=== PATIENT | male | born 2000 | race African-American/Black ===

== ENCOUNTER 2020-12-14 13:48 | Emergency (ER) | payer OTHER, SELFPAY ==
--- NOTE | ~2020-12-14 | XR_ITS ---
EXAMINATION: XR HUMERUS, LEFT CLINICAL INFORMATION: Injury COMPARISON: None TECHNIQUE: AP and lateral views of the left humerus. FINDINGS: The bones and soft tissues are normal. No fracture. Imaged portions of the shoulder and elbow are unremarkable. There is soft tissue subcutaneous emphysema from soft tissue laceration. XR/XR humerus LT IMPRESSION: No radiodense foreign body. No fracture. Subcutaneous and deep soft tissue emphysema probably due to patient's soft tissue laceration injury.
[2020-12-14 16:54] VITALS: BP 148/90; PULSE 64; RESP 16; TEMP 37.2; O2SAT 98; BMI 21.3
[2020-12-14] MEDS: oxyCODONE HCl Immed Release 5 MG TABLET PO (17:35)
[2020-12-14] MEDS: Diphth,Pertus(ACell),Tet Adult 0.5 ML SYRINGE IM (17:36)
[2020-12-14] MEDS: Lidocaine HCl 1 % MPF 5 ML VIAL SUBCUT (17:37)
--- NOTE | 2020-12-14 18:05 | ED.WOUNDLAC ---
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 Denies head injury or loss of consciousness. Not up-to-date on tetanus. Onset (ago): minute(s) (Prior to arrival) Extremity Location: left: arm Place: work (Outdoors) Patient tetanus UTD: No Context: accidental Associated symptoms: pain and unable to move injured part Treatments prior to arrival: bandage Related Data Previous Rx's Medication Instructions Recorded acetaminophen 500 mg tablet 1,000 mg PO QID PRN #14 tab 12/14/20 (Tylenol Extra Strength) cephalexin 500 mg capsule 500 mg PO QID 10 Days #40 cap 12/14/20 ibuprofen 800 mg tablet 800 mg PO Q8H PRN #14 tab 12/14/20 oxycodone 5 mg tablet 5 mg PO BID PRN #10 tab 12/14/20 Allergies Allergy/AdvReac Type Severity Reaction Status Date / Time No Known Allergies Allergy Verified 12/14/20 16:53 Review of Systems Review of Systems: Constitutional : No Fever, No Chills, Cardiovascular : No Chest Pain, No SOB Respiratory : No Dyspnea Gastrointestinal : No abdominal pain Musculoskeletal : No Joint Swelling Skin : positive skin laceration, No Foreign bodies, No rash, No surrounding erythema Neuro : No Weakness, No Numbness/tingling Psych : No SI/HI/thoughts of self injury Yes all other systems are reviewed and are negative PMFSH Past Medical History Attestation statement: The following information was validated with the patient. Medical History No known health problems Social History Social History Advance Directives: No Advance Directives Information Provided: Yes Physical Exam Vital Signs: Vital Signs: Last Vital Signs Temp 99.0 F 12/14/20 16:54 Pulse 64 12/14/20 16:54 Resp 16 12/14/20 16:54 BP 148/90 H 12/14/20 16:54 Pulse Ox 98 12/14/20 16:54 Body Mass Index 21.3 vital signs have been reviewed as normal and appeared to be correct. Blood pressure hypertensive 149/90. Heart rate normal. Respiration rate normal. Temperature normal. Oxygen saturation normal. Appearance: Alert. Oriented X3. No acute distress. Head: Normal external exam. Normocephalic. Atraumatic. Eyes: PERRLA. EOMI. Conjunctiva and sclera normal. Eyelids normal. ENT:Pharynx normal. Uvula midline. Moist mucous membranes. Neck: Normal inspection. Neck supple. FROM. No adenopathy. No meningeal signs. CVS: Normal heart rate and rhythm. Heart sound normal. Pulses normal throughout. No murmurs/rales/gallops. Respiratory: No respiratory distress. Painless inspiration. Breath sounds normal. No wheezes/rales/rhonchi noted. Chest nontender. No accessory muscle usage noted or decreased air movement noted. Back: Full range of motion noted. No rashes/lesion/induration/fluctuance or signs of infection noted. Skin: Skin warm and dry. Normal skin color. Normal skin turgor. No rashes/lesions noted. Extremities: To left upper arm at the distal humerus aspect patient has moderate tenderness of patient with a 3 cm intermediate laceration with fat protrusion noted. No ligamentous laxity noted. The muscles appear to be intact. Patient has full sensation. Although patient has limited range of motion to the left upper arm where he cannot extend the left elbow joint due to pain otherwise all other extremities exhibit normal range of motion and nontender. Neuro: Oriented X 3. No motor deficit. No sensory deficit. Reflexes normal. Normal steady gait. No focal neuro deficits noted. Vascular: + radial pulses/+ 2 distal pedal pulses/+2 dorsalis pedis b/l. Normal cap refill. No cyanosis noted to upper extremity nails and lower extremity toes nails. Course Course Course Narrative: 20-year-old male who is currently an [employer] worker presenting to the ED via EMS after he sustained a laceration when he was trying to deliver a package where he tried to jump over the fence to safely deliver the package and then he slipped and fell injuring his left upper arm with the black metal fence punctured his left upper arm and since then he has been having pain and decreased range of motion. Denies head injury or loss of consciousness. On exam patient has limited range of motion he cannot extend the arm completely keeps it in a 90 degree angle/flexion although has full sensation. I had Dr. Garcia come evaluate the patient and we do not see any ligamentous laxity or muscle ruptures/tears. Patient is now status post laceration repair with [address] Patient tolerated procedure well. Tetanus updated at this time. X-ray revealed subcutaneous and deep soft tissue emphysema probably due to patient's soft tissue laceration injury otherwise no foreign bodies or fractures noted. Will place in a splint. DC home with instructions to follow-up with [facility] and to return in 10 days for suture removal. Patient understands agrees with this plan. MDM - Wound/Laceration Medical Records Attestation: I reviewed the patient's medical records. Imaging Data X-ray of left humerus: Attestation: I personally reviewed and interpreted this imaging study as follows: Radiologist's impression: FINDINGS: The bones and soft tissues are normal. No fracture. Imaged portions of the shoulder and elbow are unremarkable. There is soft tissue subcutaneous emphysema from soft tissue laceration. XR/XR humerus LT IMPRESSION: No radiodense foreign body. ? No fracture. ? Subcutaneous and deep soft tissue emphysema probably due to patient's soft tissue laceration injury. Procedures Laceration Laceration 1: Site: upper extremity Side (If applicable): left Size (cm): 3 Description: linear Depth: simple, single layer Local Anesthetic: lidocaine 1% Amount of anesthesia used (mL): 5 Pre-repair: wound explored, irrigated extensively and deep structures intact Skin layer closed with: nylon Size (cm): 4-0 Number of sutures: 6 Technique: simple, interrupted Discharge Plan Discharge Clinical Impression: Laceration, Work related injury Patient Disposition: Home, Self-Care Instructions: Laceration (ED), Return to Work Instructions (ED) Prescriptions: New ibuprofen 800 mg tablet 800 mg PO Q8H PRN (Reason: pain) Qty: 14 RF: 0 acetaminophen [Tylenol Extra Strength] 500 mg tablet 1,000 mg PO QID PRN (Reason: fever or pain) Qty: 14 RF: 0 cephalexin 500 mg capsule 500 mg PO QID 10 Days Qty: 40 RF: 0 oxycodone 5 mg tablet 5 mg PO BID PRN (Reason: pain) Qty: 10 RF: 0 Referrals: [facility] [Provider Group] - 1 day Lorie Ulrich PA [Emergency Midlevel Provider] - 10 days (For suture removal please sign into the main ED) Stand Alone Forms: Work/School Release Print Language: Bulgarian
== END 2020-12-14 18:31 | disposition home or self-care (01) ==
PROVIDERS: Emergency Provider Emergency Medicine
DX: S41.112A Laceration without foreign body of left upper arm, initial encounter (principal); M79.602 Pain in left arm; Y28.9XXA Contact with unspecified sharp object, undetermined intent, initial encounter; Y93.9 Activity, unspecified; Y92.410 Unspecified street and highway as the place of occurrence of the external cause; Y99.0 Civilian activity done for income or pay; Z79.899 Other long term (current) drug therapy
CPT/HCPCS: 12002; 73060; 90471; 90715; 99284